=== PATIENT | male | born 1935 | race Caucasian/White ===

== ENCOUNTER 2018-02-13 13:47 | Emergency (ER) | payer MEDICARE, OTHER ==
[~2018-02-13] VITALS: Ht 170.2 cm; Wt 108.0 kg
[~2018-02-13 13:47] MED LIST: ATEN1TAB74 PO; ATOR40TA49 PO; COUM5TAB PO; DIGO0.25 PO; DYAZ37.52 PO; GLYB1TAB51 PO; GLYB5TAB3 PO; IMDU30TA PO; METF500 PO; NITR0.4S SL; POTA-267 PO; ST JTAB PO
[2018-02-13 13:53] VITALS: BP 157/79; PULSE 72; RESP 16; TEMP 97.6; O2SAT 96
[2018-02-13] MEDS ORDERED: SODIUM CHLORIDE 0.9% FLUSH 10 ML FLUSH IVF PRN (14:15)
[2018-02-13] MEDS ORDERED: COUM2.5T PO (14:24)
[2018-02-13] MEDS ORDERED: TRIA37.53 PO (14:24)
[2018-02-13] MEDS ORDERED: METF500T PO (14:24)
[2018-02-13] MEDS ORDERED: ATEN50TA PO (14:24)
[2018-02-13] MEDS ORDERED: GLYB5TAB3 PO ×2 (14:24)
[2018-02-13] MEDS ORDERED: POTA10TA2 PO (14:24)
[2018-02-13] MEDS ORDERED: ASPI-516 CHEW (14:24)
[2018-02-13] MEDS ORDERED: ISOS20TA PO (14:24)
[2018-02-13] MEDS ORDERED: ATOR40TA16 PO (14:24)
[2018-02-13] MEDS ORDERED: COUM5TAB PO (14:24)
[2018-02-13] MEDS ORDERED: DIGO0.25 PO (14:24)
[2018-02-13 14:42] LABS: AUTOMATED NEUTROPHIL # 5.4 TH/MM3 (1.8-7.7); BASOPHIL # 0.1 TH/MM3 (0-0.2); BASOPHIL % 1.7 % (0.0-2.0); EOSINOPHIL # 0.1 TH/MM3 (0-0.4); EOSINOPHIL % 0.9 % (0.0-4.0); HEMOGLOBIN 15.3 GM/DL (13.0-17.0); LYMPH % 21.3 % (9.0-44.0); LYMPHOCYTE # 1.7 TH/MM3 (1.0-4.8); MEAN CELL VOLUME 85.7 FL (80.0-100.0); MEAN CORPUSCULAR HEMOGLOBIN 29.2 PG (27.0-34.0); MEAN CORPUSCULAR HGB CONC 34.1 % (32.0-36.0); MEAN PLATELET VOLUME 9.2 FL (7.0-11.0); MONO % 7.4 % (0.0-8.0); MONOCYTE # 0.6 TH/MM3 (0-0.9); NEUT % 68.7 % (16.0-70.0); PLATELET COUNT 222 TH/MM3 (150-450); RED BLOOD COUNT 5.25 MIL/MM3 (4.50-5.90); RED CELL DISTRIBUTION WIDTH 14.7 % (11.6-17.2); WHITE BLOOD COUNT 7.9 TH/MM3 (4.0-11.0)
--- NOTE | 2018-02-13 14:42 | RADRPT ---
EXAM DATE: 02/13/2018 2:34 PM EDT AGE/SEX: 82 years / Male INDICATIONS: Right shoulder/upper back pain. CLINICAL DATA: This is the patient's initial encounter. Patient reports that signs and symptoms have been present for 1 week and indicates a pain score of 5/10. MEDICAL/SURGICAL HISTORY: Hypercholesterolemia. Hypertension. Diabetes. A-fib. Skin CA. . C ardiac cath. COMPARISON: No prior [facility] exams available for comparison. FINDINGS: 2 AP views of the chest demonstrate a mildly enlarged cardiac silhouette with calcification of the ao rta. There is mild perihilar and lower lung zone interstitial opacity. Slight blunting of the left co stophrenic angle is present. No pneumothorax is visualized. Bones demonstrate no acute finding. CONCLUSION: 1. Mild lower lung zone interstitial versus airspace opacity could represent atelectasis, pulmonary edema, or aspiration. 2. Mildly enlarged cardiac silhouette. Electronically signed by: Uriel Hart MD 02/13/2018 2:41 PM EDT
--- NOTE | 2018-02-13 14:44 | PD ---
Physical Exam Date Seen by Provider: Feb 13, 2018 Narrative This patient presents for evaluation of right scapular pain. Onset was a week ago. It is getting progressively worse. There are no modifying factors. There are no associated symptoms. Data Data Last Documented VS Vital Signs Date Time Temp Pulse Resp B/P (MAP) Pulse Ox O2 Delivery O2 Flow Rate FiO2 02/13/18 14:43 75 02/13/18 13:53 97.6 16 157/79 (105) 96 Orders Orders Electrocardiogram (02/13/18 14:09) Basic Metabolic Panel (Bmp) (02/13/18 14:09) Ckmb (Isoenzyme) Profile (02/13/18 14:09) Complete Blood Count With Diff (02/13/18 14:09) Prothrombin Time / Inr (Pt) (02/13/18 14:09) Act Partial Throm Time (Ptt) (02/13/18 14:09) Troponin I (02/13/18 14:09) Iv Access Insert/Monitor (02/13/18 14:09) Sodium Chloride 0.9% Flush (Ns Flush) (02/13/18 14:15) Chest, Single Ap (02/13/18 ) Acetaminophen (Tylenol) (02/13/18 16:00) Labs Laboratory Tests Test 02/13/18 14:20 White Blood Count 7.9 TH/MM3 Red Blood Count 5.25 MIL/MM3 Hemoglobin 15.3 GM/DL Hematocrit 45.0 % Mean Corpuscular Volume 85.7 FL Mean Corpuscular Hemoglobin 29.2 PG Mean Corpuscular Hemoglobin Concent 34.1 % Red Cell Distribution Width 14.7 % Platelet Count 222 TH/MM3 Mean Platelet Volume 9.2 FL Neutrophils (%) (Auto) 68.7 % Lymphocytes (%) (Auto) 21.3 % Monocytes (%) (Auto) 7.4 % Eosinophils (%) (Auto) 0.9 % Basophils (%) (Auto) 1.7 % Neutrophils # (Auto) 5.4 TH/MM3 Lymphocytes # (Auto) 1.7 TH/MM3 Monocytes # (Auto) 0.6 TH/MM3 Eosinophils # (Auto) 0.1 TH/MM3 Basophils # (Auto) 0.1 TH/MM3 CBC Comment DIFF FINAL Differential Comment Prothrombin Time 26.5 SEC Prothromb Time International Ratio 2.6 RATIO Activated Partial Thromboplast Time 33.8 SEC Blood Urea Nitrogen 25 MG/DL Creatinine 1.70 MG/DL Random Glucose 152 MG/DL Calcium Level 9.2 MG/DL Sodium Level 140 MEQ/L Potassium Level 4.4 MEQ/L Chloride Level 105 MEQ/L Carbon Dioxide Level 26.5 MEQ/L Anion Gap 9 MEQ/L Estimat Glomerular Filtration Rate 39 ML/MIN Total Creatine Kinase 35 U/L Troponin I LESS THAN 0.02 NG/ML MDM Supervised Visit with [facility]: Yes Narrative Course I, Dr. Zhu, have reviewed the advance practice practitioner's documentation and am in agreement, met with the patient face to face, made the diagnosis, and the medical decision making was done by me. *My assessment and Findings: His scapula is not tender to palpation. He has full range of motion without any difficulty at all. He has normal distal pulses and capillary refill. CBC & BMP Diagram 02/13/18 14:20 Calcium Level 9.2 Troponin is normal. Last Impressions Chest X-Ray 02/13/18 0000 Signed Impressions: CONCLUSION: 1. Mild lower lung zone interstitial versus airspace opacity could represent a telectasis, pulmonary edema, or aspiration. 2. Mildly enlarged cardiac silhouette. Please see Brissa Santa NP's note for results of laboratory and radiographic evaluation, ED course, final diagnosis and disposition Natasha Zhu MD Feb 13, 2018 14:44
[2018-02-13 14:52] LABS: CHLORIDE 105 MEQ/L (98-107); SODIUM (NA) 140 MEQ/L (136-145)
[2018-02-13 14:55] LABS: INTERNATIONAL NORMALIZED RATIO 2.6 RATIO; PROTHROMBIN TIME - PATIENT 26.5 SEC (9.8-11.6)
[2018-02-13 14:57] LABS: CALCIUM 9.2 MG/DL (8.5-10.1)
[2018-02-13 14:58] LABS: BICARBONATE 26.5 MEQ/L (21.0-32.0); BLOOD UREA NITROGEN 25 MG/DL (7-18); GLUCOSE,RANDOM 152 MG/DL (74-106)
[2018-02-13 15:01] LABS: GLOMERULAR FILTRATION RATE 39 ML/MIN (>89)
--- NOTE | 2018-02-13 15:05 | PD ---
HPI Chief Complaint: Musculoskeletal Complaint Time Seen by Provider: 14:09 Travel History International Travel<30 days: No Contact w/Intl Traveler<30days: No Traveled to known affect area: No History of Present Illness HPI 82-year-old male here with right upper back/scapular pain 1 week. Denies injury or trauma. Reports the pain is constant aching pain. No associating symptoms. Pain is not reproducible to range of motion of the shoulder. no aggravating or alleviating factors. He denies chest pain, palpitations, shortness of breath, abdominal pain. Symptom severity is mild to moderate. He decided to seek medical treatment today at the encouragement of his . He has not attempted any medications for the pain. PFSH Past Medical History Atrial Fibrillation: Yes Heart Rhythm Problems: Yes (AFIB, ) Cancer: Yes (skin) Cardiac Catheterization: Yes (WITH STENT) Cardiovascular Problems: No High Cholesterol: Yes Congestive Heart Failure: No Diabetes: Yes Patient Takes Glucophage: No Diminished Hearing: No Hypertension: Yes Myocardial Infarction: No Tetanus Vaccination: Unknown Influenza Vaccination: Yes Past Surgical History Coronary Artery Bypass Graft: No Coronary Stent: Yes Eye Surgery: Yes (RETINAL SURGERY 11/02/2010) Thoracic Surgery: No Other Surgery: Yes (cyst on sinus removed) Social History Alcohol Use: No Tobacco Use: No Substance Use: No Allergies-Medications (Allergen,Severity, Reaction): Coded Allergies: diazepam (Unverified Allergy, Severe, Hallucinations, 02/13/18) pseudoephedrine (Unverified Allergy, Unknown, 02/13/18) triprolidine (Unverified Allergy, Unknown, 02/13/18) Reported Meds & Prescriptions Reported Meds & Active Scripts Active Reported Coumadin (Warfarin) 2.5 Mg Tab 2.5 Mg PO SUNDAY Coumadin (Warfarin) 5 Mg Tab 5 Mg PO DAILY Triamterene-Hydrochlorothiazide 37.5-25 Mg Cap 2 Cap PO DAILY Potassium Chloride ER (Potassium Chloride) 10 Meq Tab 10 Meq PO DAILY Metformin (Metformin HCl) 500 Mg Tab 500 Mg PO BIDPC Isosorbide Mononitrate 20 Mg Tab 30 Mg PO BID Take 2 doses 7 hours apart. Glyburide 5 Mg Tab 5 Mg PO HS Take with meals at the same time each day Glyburide 5 Mg Tab 10 Mg PO DAILY Take with meals at the same time each day Digoxin 0.25 Mg Tab 0.25 Mg PO DAILY Atorvastatin (Atorvastatin Calcium) 40 Mg Tab 40 Mg PO HS Atenolol 50 Mg Tab 50 Mg PO DAILY Aspirin 81 Mg Chew 81 Mg CHEW DAILY Review of Systems Except as stated in HPI: all other systems reviewed are Neg General / Constitutional: No: Fever Eyes: No: Visual changes HENT: No: Headaches Cardiovascular: No: Chest Pain or Discomfort Respiratory: No: Shortness of Breath Gastrointestinal: No: Abdominal Pain Genitourinary: No: Dysuria Skin: No Rash Physical Exam Narrative GENERAL: Alert and well-appearing 82-year-old male. Resting comfortably on the stretcher in no distress. SKIN: Warm and dry. No rash HEAD: Normocephalic. EYES: No injection or drainage. NECK: Supple, trachea midline. No JVD or lymphadenopathy. CARDIOVASCULAR: Regular rate and rhythm without murmurs, gallops, or rubs. RESPIRATORY: Breath sounds equal bilaterally. No accessory muscle use. GASTROINTESTINAL: Abdomen soft, non-tender, nondistended. MUSCULOSKELETAL: No cyanosis, or edema. Full range of motion of the right shoulder. Palpable distal pulses. Normal sensation in the hand. Brisk cap refill. BACK: Patient points to the right scapular region of the site of the pain. He reports mild reproducible pain with deep palpation. Without obvious deformity. No CVA tenderness. Data Data Last Documented VS Vital Signs Date Time Temp Pulse Resp B/P (MAP) Pulse Ox O2 Delivery O2 Flow Rate FiO2 02/13/18 14:43 75 02/13/18 13:53 97.6 16 157/79 (105) 96 Orders Orders Electrocardiogram (02/13/18 14:09) Basic Metabolic Panel (Bmp) (02/13/18 14:09) Ckmb (Isoenzyme) Profile (02/13/18 14:09) Complete Blood Count With Diff (02/13/18 14:09) Prothrombin Time / Inr (Pt) (02/13/18 14:09) Act Partial Throm Time (Ptt) (02/13/18 14:09) Troponin I (02/13/18 14:09) Iv Access Insert/Monitor (02/13/18 14:09) Sodium Chloride 0.9% Flush (Ns Flush) (02/13/18 14:15) Chest, Single Ap (02/13/18 ) Labs Laboratory Tests Test 02/13/18 14:20 White Blood Count 7.9 TH/MM3 Red Blood Count 5.25 MIL/MM3 Hemoglobin 15.3 GM/DL Hematocrit 45.0 % Mean Corpuscular Volume 85.7 FL Mean Corpuscular Hemoglobin 29.2 PG Mean Corpuscular Hemoglobin Concent 34.1 % Red Cell Distribution Width 14.7 % Platelet Count 222 TH/MM3 Mean Platelet Volume 9.2 FL Neutrophils (%) (Auto) 68.7 % Lymphocytes (%) (Auto) 21.3 % Monocytes (%) (Auto) 7.4 % Eosinophils (%) (Auto) 0.9 % Basophils (%) (Auto) 1.7 % Neutrophils # (Auto) 5.4 TH/MM3 Lymphocytes # (Auto) 1.7 TH/MM3 Monocytes # (Auto) 0.6 TH/MM3 Eosinophils # (Auto) 0.1 TH/MM3 Basophils # (Auto) 0.1 TH/MM3 CBC Comment DIFF FINAL Differential Comment Prothrombin Time 26.5 SEC Prothromb Time International Ratio 2.6 RATIO Activated Partial Thromboplast Time 33.8 SEC Blood Urea Nitrogen 25 MG/DL Creatinine 1.70 MG/DL Random Glucose 152 MG/DL Calcium Level 9.2 MG/DL Sodium Level 140 MEQ/L Potassium Level 4.4 MEQ/L Chloride Level 105 MEQ/L Carbon Dioxide Level 26.5 MEQ/L Anion Gap 9 MEQ/L Estimat Glomerular Filtration Rate 39 ML/MIN Total Creatine Kinase 35 U/L Troponin I LESS THAN 0.02 NG/ML MDM Medical Decision Making Medical Screen Exam Complete: Yes Emergency Medical Condition: Yes Interpretation(s) EKG: Reviewed with my attending physician Dr. Zhu. Atrial fibrillation. Rate 74. Unchanged from priors Differential Diagnosis Differential diagnosis for scapular pain include but not limited to: Trapezius muscle strain, trapezius muscle spasm, ACS Narrative Course 82-year-old male here with right scapular pain 1 week. He is well-appearing. He declines any pain medication at this time. Given his medical history cardiac workup was initiated to rule out cardiac source of pain. His workup is reassuring. EKG is unchanged from his priors. Cardiac enzymes are negative. Chest x-ray show mild left lower lung zone interstitial versus airspace opacity. Given the symptoms have been present for 1 week and there is no EKG or cardiac enzyme evidence of cardiac cause of the pain feel this is likely musculoskeletal versus possible early shingles. Return precautions were discussed. Patient verbalized understanding and agrees to plan Diagnosis Primary Impression: Pain of right scapula Referrals: Primary Care Physician Additional Instructions: Tylenol as needed for pain. Follow-up with your primary doctor. Return to the emergency department immediately if he develop new or worsening symptoms. Disposition: 01 DISCHARGE HOME Condition: Stable Brissa Santa Feb 13, 2018 15:05
[2018-02-13 15:06] LABS: TROPONIN I LESS THAN 0.02 NG/ML (0.02-0.05)
[2018-02-13] MEDS ORDERED: ACETAMINOPHEN 325 MG TAB PO ONE (16:00)
--- NOTE | 2018-02-14 15:34 | EKG ---
Date Performed: 02/13/2018 Time Performed: 14:18:47 PTAGE: 82 years EKG: ATRIAL FIBRILLATION POSSIBLE RIGHT VENTRICULAR CONDUCTION DELAY LEFT ANTERIOR FASCICULAR BL OCK Since previous tracing, no significant change noted ABNORMAL ECG PREVIOUS TRACING : 05/19/2015 07.01 DOCTOR: Janice Mcginnis Interpretating Date/Time 02/14/2018 15:32:27
== END 2018-02-13 16:16 | disposition home or self-care (01) ==
LOC: PHEFT 13:47
DX: M25.511 Pain in right shoulder (principal); R94.31 Abnormal electrocardiogram [ECG] [EKG]; I48.91 Unspecified atrial fibrillation; E78.00 Pure hypercholesterolemia, unspecified; E11.9 Type 2 diabetes mellitus without complications; I10 Essential (primary) hypertension; Z85.828 Personal history of other malignant neoplasm of skin; Z95.5 Presence of coronary angioplasty implant and graft
CPT/HCPCS: 71045; 80048; 82550; 84484; 85025; 85610; 85730; 93005; 99285

== ENCOUNTER 2018-10-22 10:08 | Inpatient (IN) ==
--- NOTE | 2018-10-22 11:08 | ED ---
HPI General Chief Complaint: Fall Stated Complaint: Dizzy/fall/hit head/ankle pain x 08:30 this am Time Seen by Provider: 10/22/18 10:56 Source: patient and family Mode of arrival: ambulatory Limitations: no limitations History of Present Illness HPI Narrative: 83-year-old male states he was taking a shower when he got out and turned around and hit his head and knocked out 6 tiles. He keeps telling me this statement but denies any loss of consciousness or other complaints other than right ankle pain. His states he has been repetitive. History is limited from patient and helps supplement history. MD complaint: Reports fall Onset (ago): hour(s) Fall from: standing Place fall occurred: home Loss of consciousness: none Prolonged down time: no Symptoms prior to fall: Reports dizziness Location of injury: Reports head Quality: Reports sharp Related Data Home Medications Medication Instructions Recorded Confirmed apixaban [Eliquis] 5 mg PO BID 10/22/18 10/22/18 atenolol 50 mg PO DAILY 10/22/18 10/22/18 atorvastatin 40 mg PO QPM 10/22/18 10/22/18 digoxin 0.125 mg PO DAILY 10/22/18 10/22/18 donepezil 10 mg PO DAILY 10/22/18 10/22/18 glyburide 7.5 mg PO HS 10/22/18 10/22/18 glyburide 10 mg PO DAILY 10/22/18 10/22/18 isosorbide mononitrate 30 mg PO DAILY 10/22/18 10/22/18 memantine [Namenda] 10 mg PO BID 10/22/18 10/22/18 potassium chloride 10 meq PO DAILY 10/22/18 10/22/18 triamterene-hydrochlorothiazid 1 cap PO DAILY 10/22/18 10/22/18 Allergies Allergy/AdvReac Type Severity Reaction Status Date / Time diazepam Allergy Severe Hallucinati Verified 10/22/18 12:49 ons pseudoephedrine Allergy Unknown can't Verified 10/22/18 12:49 remember triprolidine Allergy Unknown can't Verified 10/22/18 12:49 remember Review of Systems ROS: all other systems reviewed are negative [facility] Medical History Medical History Afib (Acute) Hypercholesteremia (Acute) Irregular heart beat (Acute) Surgical History Surgical History H/O heart artery stent (Acute) Hx of hernia repair (Acute) Social History Social History Substance History: No History of Abuse Second Hand Smoke Exposure: No Smoking Status: Never smoker How Often Do You Have a Drink Containing Alcohol: Never Recent Travel in [facility] within the Last 8 Weeks: No Recent Out of Country Travel within the Last 8 Weeks: No Exam Narrative Exam Narrative: General: 83 y/o patient in no apparent distress Skin: trauma noted to occipital area with abrasion Eyes: perrl 2 mm, eomi ENT: no septal hematoma NECK: no pain with palpation, nexus criteria negative Cardiovascular: irregular rate and rhythm Respiratory: normal respiratory effort noted, clear to auscultation bilaterally Abdomen: soft, nontender, nondistended Back: No step-offs, midline spine nontender with palpation Extremities: Pain with palpation of right ankle, no lacerations over, neurovascularly intact, no pain with rom of other joints Neuro: awake, alert, sensation and motor grossly intact but repetitive Course Reevaluation(s) Reevaluation #1: Talk with and patient and they agreed to observation for further workup of possible syncope and likely concussion. He does have underlying dementia so it is hard to discern but given increasing repetitiveness per and use of blood thinner with head injury observation is warranted Ankle x-ray reading is still pending at time of admission and multiple calls placed to radiology so order was placed to notify admitting physician of report. My prelim shows no large fracture Consultations Consultation #1: dr brooks agrees to admit Initial Documented Vital Signs Temperature 97.8 F 10/22/18 10:19 Pulse Rate 73 10/22/18 10:19 Respiratory Rate 18 10/22/18 10:19 Blood Pressure 152/72 H 10/22/18 10:19 Pulse Oximetry 94 L 10/22/18 10:19 Last Documented Vital Signs Temperature 97.8 F 10/22/18 10:19 Pulse Rate 87 10/22/18 12:37 Respiratory Rate 16 10/22/18 12:37 Blood Pressure 154/74 H 10/22/18 12:37 Pulse Oximetry 96 10/22/18 12:37 Medical Decision Making MDM Narrative Medical decision making narrative: We will check blood work, trauma imaging and patient will likely need workup for possible syncope Medical Screen Exam Complete: Yes Emergency Medical Condition: Yes Differential Diagnosis Differential Diagnosis: Intracranial bleed, fracture, strain, syncope Lab Data Result diagrams: 10/22/18 11:15 10/22/18 11:15 Lab Results 10/22/18 10/22/18 10/22/18 Range/Units 11:15 11:15 11:15 CBC w Diff Auto diff final WBC 6.7 (4.0-11.0) th/mm3 RBC 5.13 (4.50-5.90) mil/mm3 Hgb 14.8 (13.0-17.0) gm/dL Hct 45.3 (39.0-51.0) % MCV 88.3 (80.0-100.0) fL MCH 28.7 (27.0-34.0) pg MCHC 32.5 (32.0-36.0) % RDW 14.2 (11.6-17.2) % Plt Count 188 (150-450) th/mm3 MPV 9.0 (7.0-11.0) fL Neut % (Auto) 78.1 H (16.0-70.0) % Lymph % (Auto) 15.3 (9.0-44.0) % [place] % (Auto) 5.8 (0.0-8.0) % Eos % (Auto) 0.5 (0.0-4.0) % Baso % (Auto) 0.3 (0.0-2.0) % Neut # (Auto) 5.3 (1.8-7.7) th/mm3 Lymph # (Auto) 1.0 (1.0-4.8) th/mm3 [place] # (Auto) 0.4 (0.0-0.9) th/mm3 Eos # (Auto) 0.0 (0.0-0.4) th/mm3 Baso # (Auto) 0.0 (0.0-0.2) th/mm3 WBC Differential . Differential Comment . PT 11.2 (9.8-11.6) sec INR 1.1 Ratio APTT 25.6 (23.4-31.7) sec Sodium 138 (136-145) meq/L Potassium 4.1 (3.5-5.1) meq/L Chloride 104 (98-107) meq/L Carbon Dioxide 29.4 (21.0-32.0) meq/L Anion Gap 5 (5-15) meq/L BUN 26 H (7-18) mg/dL Creatinine 1.90 H (0.60-1.30) mg/dL Estimated GFR 34 L (>89) mL/min POC Glucose (68-110) mg/dl Random Glucose 226 H (74-106) mg/dL Calcium 9.5 (8.5-10.1) mg/dL Magnesium 2.3 (1.5-2.5) mg/dL Total Bilirubin 1.0 (0.2-1.0) mg/dL AST 12 L (15-37) U/L ALT 16 (12-78) U/L Alkaline Phosphatase 95 (45-117) U/L Total Creatine Kinase 36 L (39-308) U/L Troponin I Less than 0.02 L (0.02-0.05) ng/mL Total Protein 7.2 (6.4-8.2) g/dL Albumin 3.4 (3.4-5.0) g/dL 10/22/18 Range/Units 11:31 CBC w Diff WBC (4.0-11.0) th/mm3 RBC (4.50-5.90) mil/mm3 Hgb (13.0-17.0) gm/dL Hct (39.0-51.0) % MCV (80.0-100.0) fL MCH (27.0-34.0) pg MCHC (32.0-36.0) % RDW (11.6-17.2) % Plt Count (150-450) th/mm3 MPV (7.0-11.0) fL Neut % (Auto) (16.0-70.0) % Lymph % (Auto) (9.0-44.0) % [place] % (Auto) (0.0-8.0) % Eos % (Auto) (0.0-4.0) % Baso % (Auto) (0.0-2.0) % Neut # (Auto) (1.8-7.7) th/mm3 Lymph # (Auto) (1.0-4.8) th/mm3 [place] # (Auto) (0.0-0.9) th/mm3 Eos # (Auto) (0.0-0.4) th/mm3 Baso # (Auto) (0.0-0.2) th/mm3 WBC Differential Differential Comment PT (9.8-11.6) sec INR Ratio APTT (23.4-31.7) sec Sodium (136-145) meq/L Potassium (3.5-5.1) meq/L Chloride (98-107) meq/L Carbon Dioxide (21.0-32.0) meq/L Anion Gap (5-15) meq/L BUN (7-18) mg/dL Creatinine (0.60-1.30) mg/dL Estimated GFR (>89) mL/min POC Glucose 214 (68-110) mg/dl Random Glucose (74-106) mg/dL Calcium (8.5-10.1) mg/dL Magnesium (1.5-2.5) mg/dL Total Bilirubin (0.2-1.0) mg/dL AST (15-37) U/L ALT (12-78) U/L Alkaline Phosphatase (45-117) U/L Total Creatine Kinase (39-308) U/L Troponin I (0.02-0.05) ng/mL Total Protein (6.4-8.2) g/dL Albumin (3.4-5.0) g/dL Imaging Data Radiologist's impression: Chest X-Ray 10/22/18 11:01 CONCLUSION: Slight cardiomegaly. Head CT 10/22/18 11:01 CONCLUSION: Chronic small vessel ischemic and atrophic changes, chronic sinusitis. Discharge Plan Discharge Disposition Patient Disposition: ED Admit(ED Internal Use Only) Discharge Order Discharge Orders: ED Use Only Admit Order (Routine); Ordered 10/22/18 Ordered By: Barbara Stuart Discharge Details Diagnosis: Near syncope, Concussion Physicians Team ED Provider: Barbara Stuart Primary Care Provider: Manny Prater Attending Provider: Favian Brooks Status ED Status: Admitted Observation Patient
[2018-10-22 11:43] LABS: Baso % (Auto) 0.3 % (0.0-2.0); Eos % (Auto) 0.5 % (0.0-4.0); Hematocrit 45.3 % (39.0-51.0); Hemoglobin 14.8 gm/dL (13.0-17.0); Lymph % (Auto) 15.3 % (9.0-44.0); Mean Corpuscular HGB Conc 32.5 % (32.0-36.0); Mean Corpuscular Hemoglobin 28.7 pg (27.0-34.0); Mean Corpuscular Volume 88.3 fL (80.0-100.0); Mono # (Auto) 0.4 th/mm3 (0.0-0.9); Mono % (Auto) 5.8 % (0.0-8.0); Neut # (Auto) 5.3 th/mm3 (1.8-7.7); Neut % (Auto) 78.1 % (16.0-70.0); Platelet Count 188 th/mm3 (150-450); Red Blood Count 5.13 mil/mm3 (4.50-5.90); Red Cell Distribution Width 14.2 % (11.6-17.2); White Blood Count 6.7 th/mm3 (4.0-11.0)
[2018-10-22 11:50] LABS: Chloride 104 meq/L (98-107); Potassium 4.1 meq/L (3.5-5.1); Sodium 138 meq/L (136-145)
--- NOTE | 2018-10-22 11:51 | CT ---
EXAM DATE: 10/22/2018 11:46 AM EST AGE/SEX: 83 years / Male INDICATIONS: Fell in shower and hit left top of head. CLINICAL DATA: This is the patient's initial encounter. Patient reports that signs and symptoms have been present for 1 day and indicates a pain score of 2/10. MEDICAL/SURGICAL HISTORY: Cardiovascular disease. Hypercholesterolemia. Atrial fibrillation. Mik nary artery stent. Hernia repair. RADIATION DOSE: 55.21 CTDI (mGy) COMPARISON: PO[facility], MR BRAIN W/O CONTRAST, 11/19/2015. . TECHNIQUE: CT of the head without contrast. Using automated exposure control and adjustment of the mA and/or kV according to patient size, radiation dose was kept as low as reasonably achievable to ob tain optimal diagnostic quality images. DICOM format image data is available electronically for revi ew and comparison. FINDINGS: There is no evidence for intracranial hemorrhage, mass effect, mass lesions, or edema. The visualize d bony structures appear intact. Moderate degree of brain atrophy is seen. Moderate periventricular white matter changes are seen nonspecific mostly consistent with chronic small vessel ischemic change s. There are no signs of acute infarction for technique. There is moderate mucoperiosteal thickening and fluid within bilateral sphenoid sinuses and right maxillary sinus. CONCLUSION: Chronic small vessel ischemic and atrophic changes, chronic sinusitis. Electronically signed by: Kristy Singh MD Board Certified Radiologist 10/22/2018 11:49 AM EST
[2018-10-22 11:53] LABS: Albumin 3.4 g/dL (3.4-5.0); Calcium 9.5 mg/dL (8.5-10.1)
[2018-10-22 11:54] LABS: Anion Gap 5 meq/L (5-15); Blood Urea Nitrogen 26 mg/dL (7-18); Carbon Dioxide 29.4 meq/L (21.0-32.0); Glucose,Random 226 mg/dL (74-106); Magnesium 2.3 mg/dL (1.5-2.5)
[2018-10-22 11:55] LABS: Activated Partial Thrombo Time 25.6 sec (23.4-31.7); INR 1.1 Ratio; Prothrombin Time 11.2 sec (9.8-11.6)
[2018-10-22 11:57] LABS: Alanine Aminotransferase 16 U/L (12-78); Aspartate Aminotransferase 12 U/L (15-37); Glomerular Filtration Rate 34 mL/min (>89)
[2018-10-22 11:58] LABS: Total Protein 7.2 g/dL (6.4-8.2)
[2018-10-22 12:00] LABS: Alkaline Phosphatase 95 U/L (45-117)
--- NOTE | 2018-10-22 12:01 | XR ---
EXAM DATE: 10/22/2018 11:55 AM EST AGE/SEX: 83 years / Male INDICATIONS: Syncopal episode with fall today. CLINICAL DATA: This is the patient's initial encounter. Patient reports that signs and symptoms have been present for 1 day and indicates a pain score of 2/10. MEDICAL/SURGICAL HISTORY: Hypercholesterolemia. A-fib. . Cardiac stent. Hernia repair. COMPARISON: No prior exams available for comparison. FINDINGS: Lungs are clear. Slight cardiomegaly seen. CONCLUSION: Slight cardiomegaly. Electronically signed by: Kristy Snigh MD Board Certified Radiologist 10/22/2018 12:00 PM EST
[2018-10-22 12:03] LABS: Creatine Kinase 36 U/L (39-308)
[2018-10-22] MEDS ORDERED: Acetaminophen 325 MG Tablet PO PRN ×2 (12:25→20:00)
[2018-10-22] MEDS: Sod Chloride 0.9% Inj 1,000 ML IV.CONT SCH ×2 (12:49→21:09)
--- NOTE | 2018-10-22 14:01 | XR ---
EXAM DATE: 10/22/2018 11:55 AM EST AGE/SEX: 83 years / Male INDICATIONS: Right ankle pain post syncopal episode with fall today. CLINICAL DATA: This is the patient's initial encounter. Patient reports that signs and symptoms have been present for 1 day and indicates a pain score of 5/10. MEDICAL/SURGICAL HISTORY: Hypercholesterolemia. A-fib. . Cardiac stent. Hernia repair. COMPARISON: No prior exams available for comparison. FINDINGS: Bony structures are intact and in normal alignment. Joints are intact without dislocation or signifi cant arthropathy. Ankle mortise is intact. Osseous density is normal for age. Vascular calcification in the posterior leg. No radiopaque foreign bodies seen. CONCLUSION: No evidence of recent bony injury. Electronically signed by: Rolando Barnett MD Board Certified Radiologist 10/22/2018 2:00 PM EST
--- NOTE | 2018-10-22 14:50 | US ---
EXAM DATE: 10/22/2018 2:28 PM EST AGE/SEX: 83 years / Male INDICATIONS: Syncope. Patient fell while getting out of the shower. CLINICAL DATA: This is the patient's initial encounter. Patient reports that signs and symptoms have been present for 1 day and indicates a pain score of 7/10. MEDICAL/SURGICAL HISTORY: Hypercholesterolemia. Afib. Irregular heart beat. Coronary artery st ent. Hernia repair. COMPARISON: No prior exams available for comparison. VELOCITY PARAMETERS: ICA/CCA Ratio: Right 1.1 , Left 1.6 ICA: Right 105 cm/sec, Left 193 cm/sec CCA: Right 96 cm/sec, Left 121 cm/sec ECA: Right 135 cm/sec, Left 122 cm/sec Vertebral: Right 41 cm/sec antegrade, Left 41 cm/sec antegrade FINDINGS: Right Carotid: Mild arteriosclerotic plaque is visualized.The waveforms are within normal limits. Left Carotid: Mild arteriosclerotic plaque is visualized. The waveforms are within normal limits. Other: None. CONCLUSION: No evidence for hemodynamically significant stenosis. Electronically signed by: Kristy Singh MD Board Certified Radiologist 10/22/2018 2:49 PM EST
--- NOTE | 2018-10-22 17:30 | P.HPIM ---
History of Present Illness Primary Care Physician: Manny Prater MD Chief Complaint: Fell in shower History of Present Illness: 83-year-old male with known history of hypertension, hyperlipidemia, coronary artery disease, atrial fibrillation, diabetes, recent evaluation with neurology for possible dementia who presented to hospital because of fall at home. Patient states that he was in normal state of health at approximately 9 AM this morning when he went into take a shower. When he came out of the shower he fell backwards hitting his head on the wall actually busting 6 tile and the drywall. Patient did not lose any consciousness or have any head injury. Patient called out for his and he was brought to the hospital for evaluation. CT scan of the brain did not indicate any acute abnormality. Information was taken from daughter at bedside. They indicate that he has been undergoing neurology consultations for memory issues. He has had difficulty with slow ambulation and difficulty with ambulation. Patient denies any loss of consciousness, speech difficulties, difficulty eating swallowing food, visual disturbances, ataxic gait. Review of Systems Review of Systems: all other systems reviewed are negative Musculoskeletal: Reports joint swelling (Right ankle) Comments: Fall at home [facility] Medical History Medical History Afib (Acute) Coronary artery disease (Acute) Diabetes (Acute) Family history of hypertension (Acute) Hypercholesteremia (Acute) Irregular heart beat (Acute) Surgical History Surgical History H/O heart artery stent (Acute) History of cataract surgery (Acute) Hx of hernia repair (Acute) Family History Family History Other Family history of stroke Social History Social History Substance History: No History of Abuse Second Hand Smoke Exposure: No Smoking Status: Never smoker How Often Do You Have a Drink Containing Alcohol: Never Recent Travel in [place] within the Last 8 Weeks: No Recent Out of Country Travel within the Last 8 Weeks: No Immunization History Tetanus Immunization: Unsure Medications and Allergies Allergies Allergy/AdvReac Type Severity Reaction Status Date / Time diazepam Allergy Severe Hallucinati Verified 10/22/18 12:49 ons pseudoephedrine Allergy Unknown can't Verified 10/22/18 12:49 remember triprolidine Allergy Unknown can't Verified 10/22/18 12:49 remember Home Medications Medication Instructions Recorded Confirmed Type apixaban [Eliquis] 5 mg PO BID 10/22/18 10/22/18 History atenolol 50 mg PO DAILY 10/22/18 10/22/18 History atorvastatin 40 mg PO QPM 10/22/18 10/22/18 History digoxin 0.125 mg PO DAILY 10/22/18 10/22/18 History donepezil 10 mg PO DAILY 10/22/18 10/22/18 History glyburide 7.5 mg PO HS 10/22/18 10/22/18 History glyburide 10 mg PO DAILY 10/22/18 10/22/18 History isosorbide mononitrate 30 mg PO DAILY 10/22/18 10/22/18 History memantine [Namenda] 10 mg PO BID 10/22/18 10/22/18 History potassium chloride 10 meq PO DAILY 10/22/18 10/22/18 History triamterene-hydrochlorothiazid 1 cap PO DAILY 10/22/18 10/22/18 History Active Medications: Active Medications Acetaminophen (Tylenol) 650 mg PO Q4H PRN PRN Reason: Temp > 100.4 Al Hydroxide/Mg Hydroxide (Milk Of Magnchiqui Liq) 30 ml PO Q12H PRN PRN Reason: Mild Constipation Sodium Chloride (Ns Inj) 1,000 mls @ 80 mls/hr IV.CONT .[id number] [facility] Last Infusion: 10/22/18 14:59 Dose: 80 mls/hr Ondansetron HCl (Zofran Inj) 4 mg IV.PUSH Q6H PRN PRN Reason: NAUSEA OR VOMITING Sodium Chloride (Ns Flush) 2 ml IV.FLUSH BID [facility] Sodium Chloride (Ns Flush) 2 ml IV.FLUSH PRN PRN PRN Reason: FLUSH AFTER USING IV ACCESS Physical Exam Vital signs: Vital Signs 10/22/18 10:19 10/22/18 11:01 10/22/18 11:16 Temperature 97.8 F Pulse Rate 73 80 80 Respiratory Rate 18 16 Blood Pressure 152/72 H 159/74 H Pulse Oximetry 94 L 96 10/22/18 12:37 10/22/18 14:12 02/12/19 16:15 Temperature Pulse Rate 87 82 73 Respiratory Rate 16 16 Blood Pressure 154/74 H 152/72 H Pulse Oximetry 96 96 Intake & Output 10/21/18 10/22/18 10/22/18 18:59 06:59 18:59 Intake Total 500 / 500 Output Total 300 / 300 Balance 200 / 200 Weight 105 kg Intake: IV 200 / 200 NS Inj 1,000 ML @ 80 mls/hr IV. 200 / 200 CONT .[id number] [facility] Rx#: [id number] Oral 300 / 300 Output: Urine 300 / 300 Other: Weight On Admission 105 kg Narrative: GENERAL: Well-developed, well-nourished, in no acute distress. alert and orientated HEENT: Head is normocephalic without any lesions or masses noted. Facial features are symmetric. Eyes: Pupils equal round reactive to light. Extraocular muscles are intact. Conjunctivae were clear. Oropharyngeal: Pharynx without any erythema edema. Tongue is midline without deviation. Buccal mucosa is moist without any masses or lesions NECK: Supple without any masses. Trachea midline no deviation. No JVD, no bruits are appreciated CARDIAC: Irregular rhythm, irregular rate. S1/S2 are heard. No murmurs gallops or rubs. LUNGS: Clear to auscultation bilaterally. No wheeze, rhonchi or rales. No use of accessory muscles on inspiration or expiration. ABDOMEN: Soft, nontender. Nondistended. Bowel sounds heard in all 4 quadrants. No organomegaly or masses. Negative rebound, negative guarding EXTREMITIES: No edema, pulses are equal bilaterally. No cyanosis or clubbing NEUROLOGY: Mood and affect appear appropriate. Cranial nerves II through XII grossly intact. Muscle strength 5/5 in upper and lower extremities bilaterally. Deep tendon reflexes are 2+ in upper and lower extremities bilaterally. Results Labs CBC & Chem 7: 10/22/18 11:15 10/22/18 11:15 Imaging Impressions Carotid Doppler Study 10/22/18 00:00 CONCLUSION: No evidence for hemodynamically significant stenosis. Ankle X-Ray 10/22/18 11:01 CONCLUSION: No evidence of recent bony injury. Chest X-Ray 10/22/18 11:01 CONCLUSION: Slight cardiomegaly. Head CT 10/22/18 11:01 CONCLUSION: Chronic small vessel ischemic and atrophic changes, chronic sinusitis. Caprini VTE Risk Assessment Caprini VTE Risk Assessment: Moderate/High Risk (score >= 2) Caprini Risk Assessment Model: Point Value = 1 Point Value = 2 Point Value = 3 Point Value = 5 Age 41-60 Minor surgery BMI > 25 kg/m2 Swollen legs Varicose veins or History of unexplained or recurrent spontaneous Oral contraceptives or hormone replacement Sepsis (< 1 month) Serious lung disease, including pneumonia (< 1 month) Abnormal pulmonary function Acute myocardial infarction Congestive heart failure (< 1 month) History of inflammatory bowel disease Medical patient at bed rest Age 61-74 Arthroscopic surgery Major open surgery (> 45 min) Laparoscopic surgery (> 45 min) Malignancy Confined to bed (> 72 hours) Immobilizing plaster cast Central venous access Age >= 75 History of VTE Family history of VTE Factor V Leiden Prothrombin [id number] Lupus anticoagulant Anticardiolipin antibodies Elevated serum homocysteine Heparin-induced thrombocytopenia Other congenital or acquired thrombophilia Stroke (< 1 month) Elective arthroplasty Hip, pelvis, or leg fracture Acute spinal cord injury (< 1 month) Prophylaxis Regimen: Total Risk Factor Score Risk Level Prophylaxis Regimen 0-1 Low Early ambulation 2 Moderate Order ONE of the following: *Sequential Compression Device (SCD) *Heparin 5000 units SQ BID 3-4 Higher Order ONE of the following medications: *Heparin 5000 units SQ TID *Enoxaparin/Lovenox 40 mg SQ daily (WT < 150 kg, CrCl > 30 mL/min) *Enoxaparin/Lovenox 30 mg SQ daily (WT < 150 kg, CrCl > 10-29 mL/min) *Enoxaparin/Lovenox 30 mg SQ BID (WT < 150 kg, CrCl > 30 mL/min) AND/OR *Sequential Compression Device (SCD) 5 or more Highest Order ONE of the following medications: *Heparin 5000 units SQ TID (Preferred with Epidurals) *Enoxaparin/Lovenox 40 mg SQ daily (WT < 150 kg, CrCl > 30 mL/min) *Enoxaparin/Lovenox 30 mg SQ daily (WT < 150 kg, CrCl > 10-29 mL/min) *Enoxaparin/Lovenox 30 mg SQ BID (WT < 150 kg, CrCl > 30 mL/min) AND *Sequential Compression Device (SCD) Assessment and Plan Plan Close head injury We will need to monitor for postconcussion syndrome, patient high risk due to anticoagulated with Eliquis Initial CT scan does not indicate any acute abnormality Frequent neuro checks Fall at home Right ankle pain associated with fall at home X-rays do not indicate any acute abnormality PT/OT evaluations Carotid ultrasound was unremarkable Obtain echocardiogram Monitor orthostatic vitals Diabetes Accu-Cheks with sliding scale insulin Hypertension, hyperlipidemia, coronary artery disease, atrial fibrillation Continue home medications DVT prevention Sequential compression devices, restart Eliquis tomorrow Discussed Condition With: Patient, nursing staff, daughter at bedside, Dr. Brooks H&P: Quality VTE Deep Vein Thrombosis/Pulmonary Embolism Present on Admission: No
[2018-10-22] MEDS ORDERED: Dextrose 50% in Water 50 ML Vial IV.PUSH PRN (17:37)
[2018-10-22] MEDS: Insulin NovoLOG Aspart Correctional Sugar Inj SQ SCH (21:02)
[2018-10-22 21:14] LABS: Bilirubin,Urine Negative (Negative); Clarity,Urine Clear (Clear); Color,Urine Yellow (Yellw/Straw); Glucose,Urine (UA) Negative (Negative); Leukocyte Esterase,Urine Negative (Negative); Nitrite,Urine Negative (Negative); PH,Urine 6.5 (5.0-8.5); Specific Gravity,Urine 1.015 (1.002-1.035); Urobilinogen,Urine 0.2 mg/dL (Less than 2)
[2018-10-22 21:19] LABS: Hyaline Casts,Urine 0-3 /lpf (0-3); Mucus,Urine Few /lpf (Occasional); RBC,Urine 0-3 /hpf (0-3); WBC,Urine 0-5 /hpf (0-5)
[2018-10-23] MEDS: Isosorbide Mononitrate 30 MG ER 24HR Tablet (Imdur) PO SCH (09:36)
[2018-10-23] MEDS: Atenolol 50 MG Tablet PO SCH (09:36)
[2018-10-23] MEDS: Insulin NovoLOG Aspart Correctional Sugar Inj SQ SCH ×4 (09:36→20:34)
--- NOTE | 2018-10-23 12:11 | MR ---
EXAM DATE: 10/23/2018 10:40 AM EST AGE/SEX: 83 years / Male INDICATIONS: . Right ankle pain and swelling after fall. CLINICAL DATA: This is the patient's subsequent encounter. Patient reports that signs and symptoms h ave been present for 2 days and indicates a pain score of 4/10. MEDICAL/SURGICAL HISTORY: Cardiovascular disease. Diabetes. Hypertension. Umbilical hernia re pair. Coronary artery stent. Cataract surgery. COMPARISON: [facility], ANKLE COMPLETE RIGHT MIN 3V, 10/22/2018. . TECHNIQUE: Multiplanar, multisequence MRI examination was performed without contrast. FINDINGS: TENDONS: All of the visualized tendons are intact. LIGAMENTS: There is thickening and intermediate signal of the anterior inferior tibiofibular ligamen t. Posterior inferior tibiofibular ligament intact. Anterior and posterior talofibular ligaments inta ct. Calcaneofibular ligament intact. BONE/CARTILAGE: There is a nondisplaced vertical fracture of the distal tibia indicating a "posterio r malleolus fracture". Articular cartilage signal within normal limits. MISCELLANEOUS: Prominent lateral superficial soft tissue edema. The plantar aponeurosis is intact. S inus tarsi unremarkable. CONCLUSION: 1. Nondisplaced posterior malleolar fracture of the distal tibia. 2. Anterior inferior tibiofibular ligament sprain. Electronically signed by: Yared Sim MD Board Certified Radiologist 10/23/2018 12:09 PM EST
[2018-10-23] MEDS: Sod Chloride 0.9% Inj 1,000 ML IV.CONT SCH ×2 (12:24→15:09)
[2018-10-23] MEDS: DIGOXIN 0.125 MG/2.5 ML PO SCH (12:24)
--- NOTE | 2018-10-23 15:02 | P.PNIM ---
Subjective Interval history: 83-year-old male who is seen examined today for follow-up on fall at home. Patient does appear to be doing quite well. He is alert and orientated. Still having significant pain in his right lower extremity. Will need further evaluation. Family concerned of him going home due to his inability to ambulate. Vital signs are stable. Patient remains afebrile. Physical Exam Vital signs: Vital Signs 10/22/18 15:00 10/22/18 16:15 10/22/18 19:16 Temperature 96 F L Pulse Rate 65 73 Respiratory Rate 20 18 Blood Pressure 122/67 Pulse Oximetry 93 L 10/22/18 20:00 10/22/18 20:30 10/23/18 00:00 Temperature 97.3 F L 97 F L Pulse Rate 62 71 59 L Respiratory Rate 20 20 Blood Pressure 137/76 148/88 H Pulse Oximetry 93 L 97 10/23/18 04:00 10/23/18 08:00 10/23/18 12:00 Temperature 96.1 F L 97.5 F L 97.6 F Pulse Rate 61 76 70 Respiratory Rate 20 20 20 Blood Pressure 163/89 H 158/78 H 138/67 Pulse Oximetry 96 95 94 L Intake & Output 10/22/18 10/23/18 10/23/18 18:59 06:59 18:59 Intake Total 820 / 820 1070 / 1070 1120 / 1120 Output Total 550 / 550 700 / 700 Balance 270 / 270 370 / 370 1120 / 1120 Weight 106 kg 106.3 kg Intake: IV 200 / 200 950 / 950 1120 / 1120 NS Inj 1,000 ML @ 80 mls/hr IV. 200 / 200 950 / 950 1120 / 1120 CONT .[id number] [facility] Rx#: [id number] Oral 620 / 620 120 / 120 Output: Urine 550 / 550 700 / 700 Other: # Voids 1 Weight On Admission 105 kg Narrative: GENERAL: Well-developed, well-nourished, in no acute distress. alert and orientated HEENT: Head is normocephalic without any lesions or masses noted. Facial features are symmetric. Eyes: Extraocular muscles are intact. Conjunctivae were clear. NECK: Supple without any masses. Trachea midline no deviation. No JVD, CARDIAC: Irregular rhythm, irregular rate. S1/S2 are heard. No murmurs gallops or rubs. LUNGS: Clear to auscultation bilaterally. No wheeze, rhonchi or rales. No use of accessory muscles on inspiration or expiration. ABDOMEN: Soft, nontender. Nondistended. Bowel sounds heard in all 4 quadrants. No organomegaly or masses. Negative rebound, negative guarding EXTREMITIES: No edema, pulses are equal bilaterally. No cyanosis or clubbing NEUROLOGY: Mood and affect appear appropriate. Cranial nerves II through XII grossly intact. Moving all extremities, speech is clear Results Labs CBC & Chem 7: 10/22/18 11:15 10/22/18 11:15 Imaging Imaging: Impressions Ankle MRI 10/23/18 00:00 CONCLUSION: 1. Nondisplaced posterior malleolar fracture of the distal tibia. 2. Anterior inferior tibiofibular ligament sprain. Assessment and Plan Plan Close head injury No evidence of postconcussion syndrome Initial CT scan does not indicate any acute abnormality Frequent neuro checks did not elicit any neurological change Fall at home Right ankle pain associated with fall at home X-rays do not indicate any acute abnormality MRI was done which did show nondisplaced posterior malleolar fracture of the distal tibia Podiatry consulted for further recommendations PT/OT evaluations Carotid ultrasound was unremarkable Awaiting echocardiogram Monitor orthostatic vitals Diabetes Accu-Cheks with sliding scale insulin Hypertension, hyperlipidemia, coronary artery disease, atrial fibrillation Continue home medications DVT prevention Sequential compression devices, Resume Eliquis Discussed Condition With: Patient, nursing staff, family at bedside, physical therapy, Dr. Brooks Discharge Planning: education and training manager consulted for rehab placement. Progress Note: Quality VTE Deep Vein Thrombosis/Pulmonary Embolism Present on Admission: No
--- NOTE | 2018-10-23 18:55 | ECHRPT ---
Indication: SYNCOPE CONCLUSIONS Normal left ventricular size. Wall thickness is measured at the upper limits of normal. The left ventricular systolic function is normal with an estimated ejection fraction of 60%. The left atrial size is upper limits of normal. Mild thickening of the mitral valve leaflets. Aortic valve sclerosis is present. The estimated pulmonary arterial pressure is 13 mmHg. Mild pulmonary valve regurgitation. BP: / HR: Rhythm: Atrial fibrillation MEASUREMENTS (Male / Female) Normal Values Technical Quality:Poor 2D ECHO LV Diastolic Diameter PLAX 4.7 cm 4.2 - 5.9 / 3.9 - 5.3 cm LV Systolic Diameter PLAX 3.7 cm IVS Diastolic Thickness 1.2 cm 0.6 - 1.0 / 0.6 - 0.9 cm LVPW Diastolic Thickness 1.2 cm 0.6 - 1.0 / 0.6 - 0.9 cm LV Relative Wall Thickness 0.5 RV Internal Dim ED PLAX 3.3 cm LVOT Diameter 2.1 cm Aortic Root Diameter 3.5 cm LA Systolic Diameter LX 4.3 cm 3.0 - 4.0 / 2.7 - 3.8 cm M-MODE AV Cusp Separation MM 1.7 cm DOPPLER AV Peak Velocity 154.5 cm/s AV Peak Gradient 9.5 mmHg AV Mean Gradient 4.5 mmHg AV Velocity Time Integral 29.0 cm LVOT Peak Velocity 98.3 cm/s LVOT Peak Gradient 3.9 mmHg LVOT Velocity Time Integral 20.9 cm AV Area Cont Eq vti 2.5 cm AV Area Cont Eq pk 2.2 cm Mitral E Point Velocity 131.7 cm/s LV E' Lateral Velocity 8.1 cm/s Mitral E to LV E' Lateral Ratio 16.3 LV E' Septal Velocity 8.4 cm/s Mitral E to LV E' Septal Ratio 15.7 TR Peak Velocity 88.2 cm/s TR Peak Gradient 3.1 mmHg Right Atrial Pressure 10.0 mmHg Pulmonary Artery Systolic Pressu 13.1 mmHg Right Ventricular Systolic Press 13.1 mmHg PV Peak Velocity 126.5 cm/s PV Peak Gradient 6.4 mmHg FINDINGS LEFT VENTRICLE Normal left ventricular size. Wall thickness is measured at the upper limits of normal. The left ventricular systolic function is normal with an estimated ejection fraction of 60%. RIGHT VENTRICLE Normal right ventricular size and systolic function. LEFT ATRIUM The left atrial size is upper limits of normal. RIGHT ATRIUM The right atrial size is normal. ATRIAL SEPTUM Normal atrial septal thickness without atrial level shunting by limited color doppler interrogation. AORTA The aortic root and proximal ascending aorta are normal in size on limited imaging. MITRAL VALVE Mild thickening of the mitral valve leaflets. AORTIC VALVE Aortic valve sclerosis is present. TRICUSPID VALVE The estimated pulmonary arterial pressure is 13mmHg. PULMONARY VALVE Mild pulmonary valve regurgitation. VESSELS The inferior vena cava is normal in size. PERICARDIUM No pericardial effusion. Amy Godfrey MD, FACC (Electronically Signed) Final Date:23 October 2018 18:55
--- NOTE | 2018-10-23 20:52 | ECG ---
Date Performed: 10/22/2018 Time Performed: 11:30:32 PTAGE: 83 years EKG: ATRIAL FIBRILLATION POSSIBLE RIGHT VENTRICULAR CONDUCTION DELAY LEFT ANTERIOR FASCICULAR BL OCK ABNORMAL ECG PREVIOUS TRACING : 02/13/2018 14.18 Since the previous tracing, no significant change noted DOCTOR: Carlos Monson Interpretating Date/Time 10/23/2018 20:51:01
[2018-10-24] MEDS: Sod Chloride 0.9% Inj 1,000 ML IV.CONT SCH ×2 (02:09→15:31)
[2018-10-24] MEDS: Insulin NovoLOG Aspart Correctional Sugar Inj SQ SCH ×4 (08:58→20:58)
[2018-10-24] MEDS: Atenolol 50 MG Tablet PO SCH (08:59)
[2018-10-24] MEDS: DIGOXIN 0.125 MG/2.5 ML PO SCH (09:00)
[2018-10-24] MEDS: Isosorbide Mononitrate 30 MG ER 24HR Tablet (Imdur) PO SCH (09:00)
--- NOTE | 2018-10-24 11:04 | P.PNIM ---
Subjective Interval history: 83-year-old male who is seen examined today for follow-up on fall at home, right distal tibia fracture. Patient resting comfortably in bed. Podiatry has evaluated the patient. Awaiting recommendations. Vital signs are stable. Patient remains afebrile. Physical Exam Vital signs: Vital Signs 10/23/18 12:00 10/23/18 12:06 10/23/18 16:00 Temperature 97.6 F 96.8 F L Pulse Rate 70 71 75 Respiratory Rate 20 20 Blood Pressure 138/67 155/89 H Pulse Oximetry 94 L 94 L 10/23/18 20:00 10/24/18 00:00 10/24/18 08:00 Temperature 97.4 F L 97.2 F L 98.2 F Pulse Rate 70 62 69 Respiratory Rate 20 20 20 Blood Pressure 124/55 L 154/79 H 156/76 H Pulse Oximetry 97 98 95 Intake & Output 10/23/18 10/24/18 10/24/18 18:59 06:59 18:59 Intake Total 1420 / 1420 1560 / 1560 Output Total 1050 / 1050 Balance 1420 / 1420 510 / 510 Weight 106.3 kg Intake: IV 1120 / 1120 1000 / 1000 NS Inj 1,000 ML @ 80 mls/hr IV. 1120 / 1120 1000 / 1000 CONT .[id number] [facility] Rx#: [id number] Oral 300 / 300 560 / 560 Output: Urine 1050 / 1050 Other: # Bowel Movements 1 Narrative: GENERAL: Well-developed, well-nourished, in no acute distress. alert and orientated HEENT: Head is normocephalic without any lesions or masses noted. Facial features are symmetric. Eyes: Extraocular muscles are intact. Conjunctivae were clear. NECK: Supple without any masses. Trachea midline no deviation. No JVD, CARDIAC: Irregular rhythm, irregular rate. S1/S2 are heard. No murmurs gallops or rubs. LUNGS: Clear to auscultation bilaterally. No wheeze, rhonchi or rales. No use of accessory muscles on inspiration or expiration. ABDOMEN: Soft, nontender. Nondistended. Bowel sounds heard in all 4 quadrants. No organomegaly or masses. Negative rebound, negative guarding EXTREMITIES: No edema, pulses are equal bilaterally. No cyanosis or clubbing NEUROLOGY: Mood and affect appear appropriate. Cranial nerves II through XII grossly intact. Moving all extremities, speech is clear Results Labs CBC & Chem 7: 10/22/18 11:15 10/22/18 11:15 Imaging Imaging: Impressions Ankle MRI 10/23/18 00:00 CONCLUSION: 1. Nondisplaced posterior malleolar fracture of the distal tibia. 2. Anterior inferior tibiofibular ligament sprain. Assessment and Plan Plan Close head injury No evidence of postconcussion syndrome Initial CT scan does not indicate any acute abnormality Frequent neuro checks did not elicit any neurological change Fall at home Right ankle pain associated with fall at home X-rays do not indicate any acute abnormality MRI was done which did show nondisplaced posterior malleolar fracture of the distal tibia PT/OT evaluations Carotid ultrasound was unremarkable Echocardiogram indicating normal systolic function with ejection fraction 60%. Aortic valve sclerosis present, PA peak pressure 13 mmhg Monitor orthostatic vitals Right nondisplaced posterior malleolar fracture of the distal tibia Podiatry consulted and evaluated the patient Awaiting recommendations from podiatry Diabetes Accu-Cheks with sliding scale insulin Chronic kidney disease stage III Continue monitor renal function Avoid nephrotoxins Hypertension, hyperlipidemia, coronary artery disease, atrial fibrillation Continue home medications DVT prevention Sequential compression devices, Resume Eliquis Discussed Condition With: Patient, family at bedside, nursing staff, Dr. Brooks Discharge Planning: Discharge planning to longterm facility once arrangements made by case management Progress Note: Quality VTE Deep Vein Thrombosis/Pulmonary Embolism Present on Admission: No
--- NOTE | 2018-10-24 23:58 | MB ---
cc: Mary Ellen Nation DPM DATE: 10/24/2018 REASON FOR PODIATRY CONSULTATION: Right ankle injury. CHIEF COMPLAINT: Fell in the shower. HISTORY OF PRESENT ILLNESS: The patient is an 83-year-old male with a history of hypertension, , CAD, atrial fibrillation, diabetes, and recently diagnosed dementia. He had a fall and posterior head injury as well as a right ankle injury. REVIEW OF SYSTEMS: A 6-point review of systems is unremarkable. PAST MEDICAL HISTORY: Per HPI. PAST SURGICAL HISTORY: Heart stent, cataracts, and history of hernia repair. SOCIAL HISTORY: Unremarkable. Substance abuse: Denies all. PHYSICAL EXAMINATION: Right foot with mild edema around the ankle. There is some posterior ankle tenderness. The right Achilles tendon is intact. There is no noted. There is fibrotic tissue posterior. There is pain on palpation of the right sinus tarsi and right lateral ligament at the ATF. There is no anterior drawer. Muscle strength intact +5/5 in all quadrants. DP and PT palpable and protective sensation grossly intact. LABORATORY DATA: 10/22/2018: WBC of 6.7, RBC of 5.13, H and H 14.8 and 45.3. DIAGNOSTIC DATA: Right ankle MRI on 10/22/2018 demonstrated a right posterior mouth nondisplaced fracture as well as a ligamentous injury, a sprain on the right lateral ankle. ASSESSMENT: Right posterior mal nondisplaced fracture, right ankle sprain grade 1. PLAN: This patient was placed in a tall walking boot. He will use it at all times except showering and sleeping. With high potential fall risk, recommend physical therapy, rehabilitation, or long-term facility for placement. Daughter, as well his , was at bedside while I had the discussion and they agreed. The patient can follow up with a week or 2 of discharge. Plan is to have the patient in the boot for about 6 weeks. Mary Ellen Nation DPM SR/danial/ , 09:39 PM , 09:46 PM
[2018-10-25 06:45] LABS: Calcium 8.7 mg/dL (8.5-10.1)
[2018-10-25] MEDS: Insulin NovoLOG Aspart Correctional Sugar Inj SQ SCH ×4 (08:18→20:56)
[2018-10-25] MEDS: Isosorbide Mononitrate 30 MG ER 24HR Tablet (Imdur) PO SCH (08:19)
[2018-10-25] MEDS: Atenolol 50 MG Tablet PO SCH (08:19)
[2018-10-25] MEDS: DIGOXIN 0.125 MG/2.5 ML PO SCH (08:20)
--- NOTE | 2018-10-25 08:36 | P.PNIM ---
Subjective Interval history: 83-year-old male who is seen examined today for follow-up on fall at home, right lower extremity fracture. Patient laying in bed comfortable. Denies any new complaints. Podiatry recommended patient be a tall walking boot. Awaiting placement to rehab facility. Vital signs are stable. Patient remains afebrile. Physical Exam Vital signs: Vital Signs 10/24/18 12:00 10/24/18 16:00 10/24/18 20:00 Temperature 97 F L 97.6 F 98.0 F Pulse Rate 65 71 66 Respiratory Rate 20 20 18 Blood Pressure 143/75 H 147/73 H 120/60 Pulse Oximetry 95 95 96 10/25/18 00:00 10/25/18 08:00 Temperature 98.1 F 96 F L Pulse Rate 61 68 Respiratory Rate 18 20 Blood Pressure 128/63 148/88 H Pulse Oximetry 98 95 Intake & Output 10/24/18 10/25/18 10/25/18 18:59 06:59 18:59 Intake Total 1600 / 1600 200 / 200 Output Total 825 / 825 400 / 400 Balance 775 / 775 -200 / -200 Weight 111.7 kg Intake: IV 1000 / 1000 NS Inj 1,000 ML @ 80 mls/hr IV. 1000 / 1000 CONT .[id number] [facility] Rx#: [id number] Oral 600 / 600 Oral Supplement 200 / 200 Output: Urine 825 / 825 400 / 400 Other: # Voids 1 Narrative: GENERAL: Well-developed, well-nourished, in no acute distress. alert and orientated HEENT: Head is normocephalic without any lesions or masses noted. Facial features are symmetric. Eyes: Extraocular muscles are intact. Conjunctivae were clear. NECK: Supple without any masses. Trachea midline no deviation. No JVD, CARDIAC: Irregular rhythm, irregular rate. S1/S2 are heard. No murmurs gallops or rubs. LUNGS: Clear to auscultation bilaterally. No wheeze, rhonchi or rales. No use of accessory muscles on inspiration or expiration. ABDOMEN: Soft, nontender. Nondistended. Bowel sounds heard in all 4 quadrants. No organomegaly or masses. Negative rebound, negative guarding EXTREMITIES: No edema, pulses are equal bilaterally. No cyanosis or clubbing NEUROLOGY: Mood and affect appear appropriate. Cranial nerves II through XII grossly intact. Moving all extremities, speech is clear Results Labs CBC & Chem 7: 10/22/18 11:15 10/25/18 05:27 Assessment and Plan Plan Close head injury No evidence of postconcussion syndrome Initial CT scan does not indicate any acute abnormality Frequent neuro checks did not elicit any neurological change Fall at home Right ankle pain associated with fall at home X-rays do not indicate any acute abnormality MRI was done which did show nondisplaced posterior malleolar fracture of the distal tibia PT/OT evaluations Carotid ultrasound was unremarkable Echocardiogram indicating normal systolic function with ejection fraction 60%. Aortic valve sclerosis present, PA peak pressure 13 mmhg Monitor orthostatic vitals which have remained normal Right nondisplaced posterior malleolar fracture of the distal tibia Podiatry consulted and evaluated the patient Dietary recommending tall walking boot [employer] was consulted to provide patient with tall walking boot Diabetes Accu-Cheks with sliding scale insulin Chronic kidney disease stage III Continue monitor renal function Avoid nephrotoxins Hypertension, hyperlipidemia, coronary artery disease, atrial fibrillation Continue home medications DVT prevention Sequential compression devices, Resume Eliquis Discussed Condition With: Patient, nursing staff, physical therapy, Dr. Brooks Discharge Planning: Discharge planning to senior living facility once arrangements made by case management Progress Note: Quality VTE Deep Vein Thrombosis/Pulmonary Embolism Present on Admission: No
[2018-10-26] MEDS: Insulin NovoLOG Aspart Correctional Sugar Inj SQ SCH ×2 (08:00→12:18)
--- NOTE | 2018-10-26 08:08 | P.DS ---
DS: Providers Date of admission: 10/23/18 11:31 Primary care physician: Manny Prater MD Consults: 10/23/18 12:16 Consult to Podiatry Routine Consulting Provider: Mary Ellen Nation Reason for Consultation: Nondisplaced posterior malleolar fracture of the distal tibia. Notified:: Office Spoke with:: Ricky Date Notified:: 10/23/18 Time Notified:: 12:23 10/24/18 09:27 HUB Only Consult Order Routine Consulting Provider: GELI Reason for Consultation: SNF placment Notified:: Service Spoke with:: Favian Date Notified:: 10/24/18 Time:: 09:28 Anticipated date of discharge: 10/26/18 Brief History from admission: 83-year-old male with known history of hypertension, hyperlipidemia, coronary artery disease, atrial fibrillation, diabetes, recent evaluation with neurology for possible dementia who presented to hospital because of fall at home. Patient states that he was in normal state of health at approximately 9 AM this morning when he went into take a shower. When he came out of the shower he fell backwards hitting his head on the wall actually busting 6 tile and the drywall. Patient did not lose any consciousness or have any head injury. Patient called out for his and he was brought to the hospital for evaluation. CT scan of the brain did not indicate any acute abnormality. Information was taken from daughter at bedside. They indicate that he has been undergoing neurology consultations for memory issues. He has had difficulty with slow ambulation and difficulty with ambulation. Patient denies any loss of consciousness, speech difficulties, difficulty eating swallowing food, visual disturbances, ataxic gait. DS: Diagnosis Discharge Diagnosis (1) Concussion: Status: Acute (2) Fall at home: Status: Acute (3) Closed head injury: Status: Acute (4) Closed malleolar fracture: Status: Acute DS: Summary 83-year-old male who originally presented to the hospital because of fall at home. Patient states that he was getting out of the shower and he fell backwards hitting his head into the wall breaking 6 tile and the drywall behind it. Patient came to the emergency department for evaluation and had workup performed without any acute abnormality. Patient was recommended hospitalization for postconcussion syndrome. Patient was monitored and further testing was performed with carotid ultrasound, orthostatic vitals, echocardiogram without any abnormality. Patient had severe right ankle pain which x-ray was performed which was unremarkable. MRI was performed which did show a right nondisplaced posterior malleolar fracture of the distal tibia. Podiatry was consulted who recommended the patient be placed in a tall walking boot and wear at all times except for showering and sleeping. Patient unable to go home in the condition that he is in. Case management consulted for rehab placement. Patient is clinically stable at this time. Will discharge to longterm facility once arrangements made by case management. Close head injury No evidence of postconcussion syndrome Initial CT scan does not indicate any acute abnormality Frequent neuro checks did not elicit any neurological change Fall at home Right ankle pain associated with fall at home X-rays do not indicate any acute abnormality MRI was done which did show nondisplaced posterior malleolar fracture of the distal tibia PT/OT evaluations Carotid ultrasound was unremarkable Echocardiogram indicating normal systolic function with ejection fraction 60%. Aortic valve sclerosis present, PA peak pressure 13 mmhg Monitor orthostatic vitals which have remained normal Right nondisplaced posterior malleolar fracture of the distal tibia Podiatry consulted and evaluated the patient Dietary recommending tall walking boot [employer] was consulted and provided patient with a tall walking boot Recommend patient follow-up import/export administrator in 2 weeks Diabetes Accu-Cheks with sliding scale insulin Chronic kidney disease stage III Continued to monitor renal function Avoid nephrotoxins Hypertension, hyperlipidemia, coronary artery disease, atrial fibrillation Continued home medications Time Spent with Patient Total time spent providing and/or coordinating discharge services: Greater than 30 minutes Quality: VTE Deep Vein Thrombosis/Pulmonary Embolism Present on Admission: No Exam Narrative Exam Narrative: GENERAL: Well-developed, well-nourished, in no acute distress. alert and orientated HEENT: Head is normocephalic without any lesions or masses noted. Facial features are symmetric. Eyes: Extraocular muscles are intact. Conjunctivae were clear. NECK: Supple without any masses. Trachea midline no deviation. No JVD, CARDIAC: Irregular rhythm, irregular rate. S1/S2 are heard. No murmurs gallops or rubs. LUNGS: Clear to auscultation bilaterally. No wheeze, rhonchi or rales. No use of accessory muscles on inspiration or expiration. ABDOMEN: Soft, nontender. Nondistended. Bowel sounds heard in all 4 quadrants. No organomegaly or masses. Negative rebound, negative guarding EXTREMITIES: No edema, pulses are equal bilaterally. No cyanosis or clubbing NEUROLOGY: Mood and affect appear appropriate. Cranial nerves II through XII grossly intact. Moving all extremities, speech is clear Results Labs on day of discharge: Labs from last 24 hours 10/26/18 10/25/18 10/25/18 07:39 19:47 17:06 POC Glucose 146 217 137 10/25/18 11:19 POC Glucose 200 Impressions ITS Impressions Carotid Doppler Study 10/22/18 00:00 CONCLUSION: No evidence for hemodynamically significant stenosis. Ankle X-Ray 10/22/18 11:01 CONCLUSION: No evidence of recent bony injury. Chest X-Ray 10/22/18 11:01 CONCLUSION: Slight cardiomegaly. Head CT 10/22/18 11:01 CONCLUSION: Chronic small vessel ischemic and atrophic changes, chronic sinusitis. Ankle MRI 10/23/18 00:00 CONCLUSION: 1. Nondisplaced posterior malleolar fracture of the distal tibia. 2. Anterior inferior tibiofibular ligament sprain. Additional Comments Discussed with patient, nursing staff, case management, Dr. Brooks Discharge Plan Discharge Disposition Patient Disposition: 03 Discharge to SNF Discharge Condition Condition: Stable Discharge Order Discharge Orders: Discharge Order (Routine); Ordered 10/26/18 Ordered By: Tom Damon Discharge Details Anticipated Discharge Date: 10/26/18 Discharge Comment: Discharge to longterm facility once arrangements made by case management Physicians Team ED Provider: Barbara Stuart Primary Care Provider: Mnany Prater Attending Provider: Favian Brooks Other Providers: Mary Ellen Nation ; [place] Rxs /Orders / Referrals /Forms Prescriptions: Continue digoxin 50 mcg/mL Solution 0.125 mg PO DAILY RF: 0 atorvastatin 40 mg Tablet 40 mg PO QPM RF: 0 potassium chloride 10 mEq Capsule, Extended Release 10 meq PO DAILY RF: 0 glyburide 5 mg Tablet 7.5 mg PO HS RF: 0 glyburide 5 mg Tablet 10 mg PO DAILY RF: 0 isosorbide mononitrate 30 mg Tablet Extended Release 24 Hr 30 mg PO DAILY RF: 0 triamterene-hydrochlorothiazid 37.5-25 mg Capsule 1 cap PO DAILY RF: 0 atenolol 50 mg Tablet 50 mg PO DAILY RF: 0 apixaban [Eliquis] 5 mg Tablet 5 mg PO BID RF: 0 donepezil 10 mg Tablet 10 mg PO DAILY RF: 0 memantine [Namenda] 10 mg Tablet 10 mg PO BID RF: 0 Referrals: Manny Prater MD [Primary Care Provider] - See Instructions Mary Ellen Nation DPM [Physician] - See Instructions (Follow-up with import/export administrator in 2 weeks.) Discharge Interventions Interventions: Discharge Planning - Case Management Last Done: 10/24/18 09:35 Status ED Status: Left Department
[2018-10-26] MEDS: Atenolol 50 MG Tablet PO SCH (08:52)
[2018-10-26] MEDS: Isosorbide Mononitrate 30 MG ER 24HR Tablet (Imdur) PO SCH (08:52)
[2018-10-26] MEDS: DIGOXIN 0.125 MG/2.5 ML PO SCH (08:58)
== END 2018-10-26 12:30 | DRG 90 ==
LOC: PHED 10:08 → PHEDA 10:08 → PH3 14:48
PROVIDERS: ADMIT Hospitalist; ATTEND Hospitalist
DX: I25.10 Atherosclerotic heart disease of native coronary artery without angina pectoris; Z79.02 Long term (current) use of antithrombotics/antiplatelets; Y93.89 Activity, other specified; E78.5 Hyperlipidemia, unspecified; Y92.002 Bathroom of unspecified non-institutional (private) residence as the place of occurrence of the external cause; I12.9 Hypertensive chronic kidney disease with stage 1 through stage 4 chronic kidney disease, or unspecified chronic kidney disease; F03.90 Unspecified dementia, unspecified severity, without behavioral disturbance, psychotic disturbance, mood disturbance, and anxiety; I48.91 Unspecified atrial fibrillation; S06.0X9A Concussion with loss of consciousness of unspecified duration, initial encounter; Z79.84 Long term (current) use of oral hypoglycemic drugs; S82.301A Unspecified fracture of lower end of right tibia, initial encounter for closed fracture; Z95.5 Presence of coronary angioplasty implant and graft; E11.22 Type 2 diabetes mellitus with diabetic chronic kidney disease; N18.3 Chronic kidney disease, stage 3 (moderate); W19.XXXA Unspecified fall, initial encounter
CPT/HCPCS: 70450; 71010; 71045; 73610; 73721; 80048; 80053; 81001; 82550; 82948; 82962; 83735; 84484; 85025; 85610; 85730; 93005; 93306; 93880; 96360; 96361; 96372; 97110; 97162; 97167; 99285; G0378; G8987; G8988; J1815; J2405; J7030; L2114